=== PATIENT | female | born 1950 | race African-American/Black ===

== ENCOUNTER 2017-08-26 02:53 | Inpatient (IN) | payer MEDICARE ==
[2017-08-26] VITALS (7 sets, daily range): BP systolic 120–166; BP diastolic 56–66
[~2017-08-26] VITALS: Ht 175.3 cm; Wt 93.0 kg
[~2017-08-26 02:53] MED LIST: ALBUTEROL SULF8.5 GM INH; ASPIRIN81 MG NG; BACITRACIN15 GM TOPIC; CIPROFLOXACIN500 M2 ORAL; COZAAR50 MG ORAL; IBUPROFEN600 MG ORAL; KEFLEX500 MG ORAL; METRONIDAZOLE500 MG ORAL; NORCO 5-325 TA1 EAC1 ORAL; NORCO 5-325 TA1 EACH ORAL; PREDNISONE20 MG ORAL
[2017-08-26 03:39] LABS: BASOPHILS % (AUTO) 1.1 % (0.0-2.0); EOSINOPHILS % (AUTO) 2.7 % (0.0-3.0); LYMPHOCYTES % (AUTO) 48.2 % (20.0-45.0); MEAN CORPUSCULAR HEMOGLOBIN 28.7 PG (27.0-31.0); MEAN CORPUSCULAR HGB CONC 32.2 G/DL (32.0-36.0); MEAN CORPUSCULAR VOLUME 89 FL (80-99); MEAN PLATELET VOLUME 10.1 FL (6.5-10.1); MONOCYTES % (AUTO) 5.3 % (1.0-10.0); NEUTROPHILS % (AUTO) 42.7 % (45.0-75.0); PLATELET COUNT 169 K/UL (150-450); RED BLOOD COUNT 4.33 M/UL (4.20-5.40); RED CELL DISTRIBUTION WIDTH 12.1 % (11.6-14.8); WHITE BLOOD COUNT 5.3 K/UL (4.8-10.8)
[2017-08-26] MEDS: Morphine Sulfate 2mg/ml Inj IVP ONE ×2 (03:45→04:38)
[2017-08-26 03:59] LABS: APPEARANCE,URINE CLEAR; KETONES,URINE NEGATIVE (NEGATIVE); LEUKOCYTE ESTERASE ,URINE NEGATIVE (NEGATIVE); NITRITE,URINE NEGATIVE (NEGATIVE); PH,URINE 6 (4.5-8.0); PROTEIN,URINE NEGATIVE (NEGATIVE); UROBILINOGEN,URINE NORMAL MG/DL (0.0-1.0)
[2017-08-26] MEDS ORDERED: DYRENIUM50 MG PO (04:00)
[2017-08-26 04:12] LABS: ALANINE AMINOTRANSFERASE 32 U/L (12-78); ALBUMIN/GLOBULIN RATIO 0.9 (1.0-2.7); ANION GAP 6 mmol/L (5-15); ASPARTATE AMINO TRANSFERASE 17 U/L (15-37); CALCIUM 9.5 MG/DL (8.5-10.1); CARBON DIOXIDE 29 MMOL/L (21-32); CHLORIDE 104 MMOL/L (98-107); CKMB 0.8 NG/ML (0.0-3.6); CREATININE 0.8 MG/DL (0.55-1.30); GLOMERULAR FILTRATION RATE > 60 mL/min (>60); POTASSIUM 3.6 MMOL/L (3.5-5.1); SODIUM 139 MMOL/L (136-145); TOTAL PROTEIN 7.7 G/DL (6.4-8.2)
--- NOTE | 2017-08-26 05:58 | Emergency Room Report ---
History of Present Illness General Chief Complaint: Chest Pain Source: Patient Present Illness HPI 67-year-old female presents ED complaining of chest pain. This chest pain started just prior to arrival. Woke her up. Midsternal, pressure-like, 5/10. Nonradiating. Denies shortness of breath. Denies fevers or chills. Denies cough. Took aspirin prior to arrival. No other aggravating relieving factors. Denies any other associated symptoms Allergies: Coded Allergies: NITROGLYCERIN (Verified Allergy, Mild, 01/07/11) Patient History Past Medical History: asthma Past Surgical History: none Pertinent Family History: none Social History: Denies: smoking, alcohol use, drug use Now: No Immunizations: UTD Reviewed Nursing Documentation: PMH: Agreed, PSxH: Agreed Nursing Documentation-PMH Past Medical History: No History, Except For Hx Cardiac Problems: No Hx Asthma: Yes Hx Cancer: No Hx Gastrointestinal Problems: No Hx Neurological Problems: No Review of Systems All Other Systems: negative except mentioned in HPI Physical Exam Vital Signs Date Time Temp Pulse Resp B/P (MAP) Pulse Ox O2 Delivery O2 Flow Rate FiO2 08/26/17 03:00 97.9 73 15 136/77 98 Room Air Sp02 EP Interpretation: reviewed, normal General Appearance: no apparent distress, alert, GCS 15, non-toxic Head: normocephalic, atraumatic Eyes: bilateral eye normal inspection, bilateral eye PERRL ENT: hearing grossly normal, normal pharynx, no angioedema, normal voice Neck: full range of motion, supple/symm/no masses Respiratory: chest non-tender, lungs clear, normal breath sounds, speaking full sentences Cardiovascular #1: regular rate, rhythm, no edema Cardiovascular #2: 2+ carotid (R), 2+ carotid (L), 2+ radial (R), 2+ radial (L) , 2+ dorsalis pedis (R), 2+ dorsalis pedis (L) Gastrointestinal: normal bowel sounds, non tender, soft, non-distended, no guarding, no rebound Rectal: deferred Genitourinary: normal inspection, no CVA tenderness Musculoskeletal: back normal, gait/station normal, normal range of motion, non- tender Neurologic: alert, oriented x3, responsive, motor strength/tone normal, sensory intact, speech normal Psychiatric: judgement/insight normal, memory normal, mood/affect normal, no suicidal/homicidal ideation Reflexes: 3+ bicep (R), 3+ bicep (L), 3+ tricep (R), 3+ tricep (L), 3+ knee (R) , 3+ knee (L) Skin: normal color, no rash, warm/dry, well hydrated Lymphatic: no adenopathy Medical Decision Making Diagnostic Impression: Primary Impression: Acute coronary syndrome ER Course Hospital Course 67-year-old female presents ED complaining of chest pressure Differential diagnoses include: ID/unstable angina, contusion, muscle strain, PTX, rib fracture Clinical course Patient placed on stretcher. on manager licensing. After initial history and physical I ordered labs, EKG, chest x-ray, morphine labs reviewed- no leukocytosis, hb/hct stable, electrolytes ok, trop negative EKG - NSR, twave inversions in lateral leads, interpreted by me Chest x-ray- cardiomegaly Case discussed with Dr. Crane and he agreed to accept the patient to his service for further care and support I. I feel this is a highly complex case requiring extensive working including EKG/Rhythm strip, Xray/CT/US, Blood/urine lab work, repeat exams while in ED, and administration of strong opiates/narcotics for pain control, admission to hospital or close patient follow up. Diagnosis - ACS admitted to telemetry in serious condition Labs Test 08/26/17 03:19 08/26/17 03:44 White Blood Count 5.3 K/UL (4.8-10.8) Red Blood Count 4.33 M/UL (4.20-5.40) Hemoglobin 12.4 G/DL (12.0-16.0) Hematocrit 38.5 % (37.0-47.0) Mean Corpuscular Volume 89 FL (80-99) Mean Corpuscular Hemoglobin 28.7 PG (27.0-31.0) Mean Corpuscular Hemoglobin Concent 32.2 G/DL (32.0-36.0) Red Cell Distribution Width 12.1 % (11.6-14.8) Platelet Count 169 K/UL (150-450) Mean Platelet Volume 10.1 FL (6.5-10.1) Neutrophils (%) (Auto) 42.7 % (45.0-75.0) Lymphocytes (%) (Auto) 48.2 % (20.0-45.0) Monocytes (%) (Auto) 5.3 % (1.0-10.0) Eosinophils (%) (Auto) 2.7 % (0.0-3.0) Basophils (%) (Auto) 1.1 % (0.0-2.0) Sodium Level 139 MMOL/L (136-145) Potassium Level 3.6 MMOL/L (3.5-5.1) Chloride Level 104 MMOL/L (98-107) Carbon Dioxide Level 29 MMOL/L (21-32) Anion Gap 6 mmol/L (5-15) Blood Urea Nitrogen 25 mg/dL (7-18) Creatinine 0.8 MG/DL (0.55-1.30) Estimat Glomerular Filtration Rate > 60 mL/min (>60) Glucose Level 176 MG/DL (74-106) Calcium Level 9.5 MG/DL (8.5-10.1) Total Bilirubin 0.2 MG/DL (0.2-1.0) Aspartate Amino Transf (AST/SGOT) 17 U/L (15-37) Alanine Aminotransferase (ALT/SGPT) 32 U/L (12-78) Alkaline Phosphatase 42 U/L (46-116) Total Creatine Kinase 110 U/L (26-308) Creatine Kinase MB 0.8 NG/ML (0.0-3.6) Creatine Kinase MB Relative Index 0.7 Troponin I 0.000 ng/mL (0.000-0.056) Pro-B-Type Natriuretic Peptide 109 pg/mL (0-125) Total Protein 7.7 G/DL (6.4-8.2) Albumin 3.6 G/DL (3.4-5.0) Globulin 4.1 g/dL Albumin/Globulin Ratio 0.9 (1.0-2.7) Urine Color Pale yellow Urine Appearance Clear Urine pH 6 (4.5-8.0) Urine Specific [place] 1.010 (1.005-1.035) Urine Protein Negative (NEGATIVE) Urine Glucose (UA) Negative (NEGATIVE) Urine Ketones Negative (NEGATIVE) Urine Occult Blood Negative (NEGATIVE) Urine Nitrite Negative (NEGATIVE) Urine Bilirubin Negative (NEGATIVE) Urine Urobilinogen Normal MG/DL (0.0-1.0) Urine Leukocyte Esterase Negative (NEGATIVE) Urine Opiates Screen Negative (NEGATIVE) Urine Barbiturates Screen Negative (NEGATIVE) Phencyclidine (PCP) Screen Negative (NEGATIVE) Urine Amphetamines Screen Negative (NEGATIVE) Urine Benzodiazepines Screen Negative (NEGATIVE) Urine Cocaine Screen Negative (NEGATIVE) Urine Marijuana (THC) Screen Negative (NEGATIVE) EKG Diagnostic Results Rate: normal Rhythm: NSR ST Segments: other - twave inversions in lateral leads ASA given to the pt in ED: No - took at home Rhythm Strip Diag. Results EP Interpretation: yes Rhythm: NSR, no PVC's, no ectopy Chest X-Ray Diagnostic Results Chest X-Ray Diagnostic Results : Chest X-Ray Ordered: Yes # of Views/Limited/Complete: 1 View Indication: Chest Pain EP Interpretation: Yes Interpretation: no consolidation, no effusion, no pneumothorax, no acute cardiopulmonary disease Impression: No acute disease Electronically Signed by: Electronically signed by Skyler Alvarez MD Last Vital Signs Date Time Temp Pulse Resp B/P (MAP) Pulse Ox O2 Delivery O2 Flow Rate FiO2 08/26/17 04:48 97.9 59 18 142/58 98 Room Air Status: improved Disposition: ADMITTED INPATIENT Condition: Serious Referrals: WILEY CRANE (PCP) SKYLER ALVAREZ M.D. Aug 26, 2017 05:58
[2017-08-26] MEDS ORDERED: Albuterol 90mcg Inhaler 8gm INH PRN (07:45)
[2017-08-26] MEDS ORDERED: Nitroglycerin Subl 0.4mg tab SL PRN (07:45)
[2017-08-26] MEDS: Pantoprazole Inj IVP SCH (09:00)
[2017-08-26] MEDS: Aspirin Baby 81mg ORAL SCH (09:00)
--- NOTE | 2017-08-26 09:58 | Diagnostic Imaging Report ---
Indication: Chest pain Technique: One view of the chest Comparison: 12/08/2015 Findings: The heart is borderline enlarged. Lungs and pleural spaces are clear. There are degenerative changes of the thoracic spine Impression: Borderline cardiomegaly No acute process This agrees with the preliminary interpretation provided by the emergency room physician
[2017-08-26] MEDS: hydroCHLOROthiazide 12.5mg TAB ORAL SCH (11:29)
[2017-08-26] MEDS: Heparin 5000 units/ml inj SUBQ SCH (21:00)
[2017-08-27 00:22] VITALS: BP 129/60
[2017-08-27 04:07] VITALS: BP 134/63
[2017-08-27] MEDS: NovoLOG Insulin Flexpen SUBQ SCH ×2 (06:30→11:30)
[2017-08-27 08:00] VITALS: BP 137/70
[2017-08-27] MEDS: hydroCHLOROthiazide 12.5mg TAB ORAL SCH ×2 (08:13→09:00)
[2017-08-27] MEDS: Pantoprazole Inj IVP SCH ×2 (08:14→09:00)
--- NOTE | 2017-08-27 08:27 | General Progress Note ---
Assessment/Plan Problem List: (1) Acute coronary syndrome ICD Codes: I20.0 - Unstable angina SNOMED: 334813111 Status: stable, progressing Assessment/Plan ppi rx egd dw/ pt poc. Subjective ROS Limited/Unobtainable: No Constitutional: Reports: malaise, weakness HEENT: Reports: no symptoms Cardiovascular: Reports: chest pain Respiratory: Reports: no symptoms Gastrointestinal/Abdominal: Reports: no symptoms Genitourinary: Reports: no symptoms Neurologic/Psychiatric: Reports: no symptoms Endocrine: Reports: no symptoms Hematologic/Lymphatic: Reports: no symptoms Allergies: Coded Allergies: NITROGLYCERIN (Verified Allergy, Mild, 01/07/11) All Systems: reviewed and negative except above Subjective had 1 episode of chest pain last night. troponins negative Objective Last 24 Hour Vital Signs Date Time Temp Pulse Resp B/P (MAP) Pulse Ox O2 Delivery O2 Flow Rate FiO2 08/27/17 04:07 97.9 62 20 134/63 96 Room Air 08/27/17 04:00 72 08/27/17 00:22 97.8 67 20 129/60 97 Room Air 08/27/17 00:00 68 08/26/17 20:10 97.7 64 20 128/66 98 Room Air 08/26/17 20:00 78 08/26/17 16:00 59 08/26/17 15:58 97.9 58 18 120/57 98 Room Air 08/26/17 12:00 61 08/26/17 08:30 97.7 57 16 133/60 100 Room Air Laboratory Tests 08/26/17 12:00: Troponin I 0.000 Height (Feet): 5 Height (Inches): 9.00 Weight (Pounds): 205 General Appearance: WD/WN, alert Neck: supple Cardiovascular: regular rhythm Respiratory/Chest: lungs clear, normal breath sounds Abdomen: normal bowel sounds, non tender, soft Edema: no edema noted Arm (L), no edema noted Arm (R), no edema noted Leg (L), no edema noted Leg (R), no edema noted Pedal (L), no edema noted Pedal (R), no edema noted Generalized PETRA BOOTH Aug 27, 2017 08:27
--- NOTE | 2017-08-27 08:45 | Cardiology Report ---
APPROVED REPORT EKG Measurement Heart [id number] Normal sinus rhythm Minimal voltage criteria for LVH, may be normal variant Nonspecific T wave abnormality Abnormal ECG
[2017-08-27] MEDS: Heparin 5000 units/ml inj SUBQ SCH (09:00)
[2017-08-27] MEDS: Aspirin Baby 81mg ORAL SCH (09:00)
--- NOTE | 2017-08-27 09:31 | Consultation ---
DATE OF CONSULTATION: 08/26/2017 CARDIOLOGY CONSULTATION CONSULTING PHYSICIAN: Eduardo Crane M.D. REQUESTING PHYSICIAN: Michelet Mejia M.D. REASON FOR CONSULTATION: Chest pain. HISTORY OF PRESENT ILLNESS: This is a 67-year-old female with several risk factors for accelerated coronary artery disease. She came to the emergency room complaining of chest pain episodes. There were two episodes of note, firstly two days ago while eating. She was unable to fully digest her meal. It sat as a lump in the center of her chest, although she was not choking. It was stuck. She felt severe chest pain as a result. A friend with her tried to do a mini Heimlich and the apparent food obstruction recovered as did her chest pain. She was well until this evening when she woke up from sleep with similar symptoms. She described it as a heaviness with the food in the middle, likely food stuck in her chest. She denied any associated symptoms. The patient is quite active and has not had any exertional chest pain. She has had a prior myocardial perfusion scan at this facility that was negative and an outpatient exercise echocardiogram at my office that was negative for flow-limiting coronary disease. PAST MEDICAL HISTORY: Asthma, type 2 diabetes mellitus, hypertension, history of cholecystectomy, and choledocholithiasis. ALLERGIES: Nitroglycerin. MEDICATIONS: Prior to admission, reviewed and reconciled. SOCIAL HISTORY: Negative for smoking, alcohol, or substance abuse. REVIEW OF SYSTEMS: No fevers. No chills. No cough. No leg swelling. No vomiting. No history of thyroid disorder. Her diabetes is managed with diet. She has not been on anti-lipid drugs. PHYSICAL EXAMINATION: GENERAL: Moderately obese. No acute distress. VITAL SIGNS: Blood pressure 142/58, pulse 59, respirations 18, and afebrile. HEENT: Conjunctivae are pink. Oropharynx clear. NECK: Supple. LUNGS: Clear. CHEST: Chest wall without tenderness. CARDIAC: Regular rhythm and rate. Normal S1 and S2 with no murmur, rub, or gallop. ABDOMEN: Obese and soft. EXTREMITIES: With no edema. LABORATORY AND DIAGNOSTIC DATA: EKG, sinus rhythm with nonspecific ST changes. Chest x-ray, cardiomegaly with no acute process. Troponin negative x2. Glucose 176. Pro-natriuretic peptide 109. IMPRESSION: 1. Noncardiac chest pain. 2. Possible esophageal spasm. 3. Consideration for hepatobiliary process with 04:01 retained stone. 4. Type 2 diabetes mellitus. 5. Gastroparesis. 6. Hypertension. PLAN: 1. Cardiac monitoring. 2. Abdominal ultrasound. 3. GI consultation for possible diagnostic endoscopy. 4. Empiric proton pump inhibitor therapy at this time. Eduardo Crane M.D. DR: HANNAH JOB#: [id number] CC:
--- NOTE | 2017-08-27 12:26 | Diagnostic Imaging Report ---
Indication: Abdominal pain, abnormal renal function, abnormal liver function tests Technique: Zendejas-scale and duplex images of the upper abdomen were obtained Comparison: 01/08/2011. Reference also made to CT scan dated 12/08/2015 Findings: Gallbladder is surgically absent. Sonographic Peralta's sign is negative. Common bile duct measures 14 mm in diameter. Common duct dilatation also evident previously No intrahepatic biliary ductal dilatation. Liver demonstrates borderline increased echogenicity, indicate hepatocellular disease such as fatty change. Portal vein and hepatic veins are patent. Pancreas is unremarkable. Spleen is unremarkable. Left kidney measures 12 cm in length. Right kidney measures 11.3 cm length. Both kidneys demonstrate normal echogenicity. There is no hydronephrosis. No focal abnormality . Non-aneurysmal abdominal aorta . Impression: Dilated common bile duct, likely related to age and postcholecystectomy state. Similarity to prior exams indicates that this is likely baseline for this patient. Downstream obstruction not completely excludable, however, and correlation with liver function tests is recommended, consideration for MRCP if clinically indicated Borderline increased hepatic echogenicity, if real could indicate basis of fatty change
--- NOTE | 2017-08-27 17:00 | History and Physical Report ---
DATE OF ADMISSION: 08/26/2017 This patient was seen in the emergency room on the day of admission. HISTORY OF PRESENT ILLNESS: The patient is a pleasant 67-year-old female. She has a history of hypertensive heart disease and presented with complaints of two episodes of chest pain. First episode happened actually while the patient was eating and felt like she had food stuck in her throat. It lasted for approximately an hour and resolved. She had a second episode on the night of admission here and presented to the emergency room. On evaluation there, her initial EKG, chest x-ray, and laboratories were unremarkable. She is followed by a nurse anesthesia program director on the outside who has done stress test last year that had been unremarkable according to the patient. PAST MEDICAL HISTORY: As above. PAST SURGICAL HISTORY: None. CURRENT MEDICATIONS: Reconciled and reviewed. ALLERGIES: Include nitroglycerin. SOCIAL HISTORY: There is no known history of tobacco, ethanol, or drugs. FAMILY HISTORY: Noncontributory. REVIEW OF SYSTEMS: GENERAL: No fever or chills. HEENT: No headaches or visual changes. CARDIOPULMONARY: Positive chest pain. No shortness of breath. GASTROINTESTINAL: No nausea or vomiting. GENITOURINARY: No urgency or frequency. MUSCULOSKELETAL: No joint pain or swelling. NEUROLOGIC: No evidence of seizures. PHYSICAL EXAMINATION: VITAL SIGNS: Temperature 98 degrees, blood pressure 128/66, pulse 64, and respirations 20. GENERAL: The patient is well developed, no apparent distress. HEART: Regular rate and rhythm. LUNGS: Clear. ABDOMEN: Soft, nontender, and nondistended. EXTREMITIES: Without clubbing, cyanosis, or edema. LABORATORY AND DIAGNOSTIC DATA: White count was 5, hemoglobin 12. Sodium 139 and potassium 3.6. Troponin was negative x2. UA was clear. Chest x-ray also was clear. ASSESSMENT: This is a pleasant female admitted with complaints of chest pain suspect secondary to either gastritis or gastroesophageal reflux disease, cannot out some type of esophageal stricture. PLAN: Antiplatelet therapy and . Cardiology and GI consultations. Plan of care was discussed with the patient's nurse anesthesia program director and the patient. Michelet Mejia M.D. DR: TERI JOB#: [id number] CC:
--- NOTE | 2017-08-28 02:15 | Progress Note ---
DATE: 08/27/2017 CARDIOLOGY PROGRESS NOTE SUBJECTIVE: The patient has not had any chest pain or shortness of breath. No nausea or vomiting. No difficulty with meals. OBJECTIVE: VITAL SIGNS: Afebrile, blood pressure 128/66, pulse 64, and respirations 20. LUNGS: Clear. CARDIAC: Regular. ABDOMEN: Soft. No focal tenderness, guarding, or rebound. EXTREMITIES: No edema. LABORATORY AND DIAGNOSTIC DATA: Abdominal ultrasound reviewed notable for dilated common bile duct, which may be normal in the setting of prior cholecystectomy and fatty liver. Troponins are negative. IMPRESSION: 1. Noncardiac chest pain, probable upper gastrointestinal related chest discomfort. 2. History of cholecystectomy. 3. Type 2 diabetes mellitus. 4. Obesity. 5. Hypertension. PLAN: 1. Continue anti-platelet therapy. 2. Dietary restrictions. 3. Maintain current antihypertensive drugs. 4. Check lipid panel. 5. We will arrange outpatient endoscopy. 6. No current indication to repeat any further cardiovascular studies. Eduardo Crane M.D. DR: ARABELLA JOB#: [id number] CC:
--- NOTE | 2017-08-29 10:01 | Discharge Summary ---
Discharge Summary Hospital Course Date of Admission Aug 26, 2017 at 04:58 Date of Discharge Aug 27, 2017 at 12:40 Admitting Diagnosis ACUTE CORONARY SYNDROME HPI Leah Burns is a 67 year old female who was admitted on Aug 26, 2017 at 04:58 for Acute Coronary Syndrome Hospital Course [id number] Discharge Discharge Disposition Patient was discharged to home Discharge Diagnoses: Silvia Montelongo NP Aug 29, 2017 10:01
--- NOTE | 2017-08-30 03:15 | Discharge Summary 2 SIG ---
DATE OF ADMISSION: 08/26/2017 DATE OF DISCHARGE: 08/27/2017 RETAIL SEASONAL SPECIALIST: Eduardo Crane M.D. BRIEF HOSPITAL COURSE: The patient is a 67-year-old female with several risk factors for accelerated coronary artery disease, came to emergency room complaining of chest pain. First episode happened while patient was eating and felt like food was stuck in her throat. It lasted for approximately an hour and resolved. She had a second episode on the night of admission. On evaluation at ED, initial troponin was negative. EKG was in normal sinus rhythm with nonspecific ST changes. Chest x-ray showed cardiomegaly with no acute process. She was then admitted for cardiac monitoring. She was given antiplatelet therapy with aspirin and was given proton pump inhibitors and Protonix IV push daily. She underwent abdominal ultrasound that showed dilated common bile duct. Troponins remained negative. She had a prior myocardial perfusion scan that was negative and an outpatient exercise echocardiogram that was likewise negative for flow-limiting coronary disease. There was no current indication to repeat any further cardiovascular studies. Due to rapid improvement and negative workup, the patient was eventually discharged home. FINAL DIAGNOSES: 1. Noncardiac chest pain, probable upper gastrointestinal related chest discomfort. 2. Type 2 diabetes mellitus. 3. Obesity. 4. Hypertension. 5. Prior cholecystectomy. DISPOSITION: The patient was discharged home. DISCHARGE MEDICATIONS: Refer to medication list. FOLLOWUP: Follow up in the primary physician's office in a week. Advised to undergo outpatient endoscopy. Michelet Mejia M.D. I have been assigned to dictate discharge summary on this account and I was not involved in the patient's management. Silvia Montelongo N.P. DR: Melida JOB#: [id number] CC: OBDULIA
== END 2017-08-27 12:40 | disposition home or self-care (01) | DRG 313 ==
LOC: EMR 03:14 → 2E 04:58 → EDBEDREQ 07:36 → 2E 09:59
DX: R07.89 Other chest pain (principal); I11.9 Hypertensive heart disease without heart failure; Z88.8 Allergy status to other drugs, medicaments and biological substances; K92.9 Disease of digestive system, unspecified; E11.9 Type 2 diabetes mellitus without complications; E66.9 Obesity, unspecified; J45.909 Unspecified asthma, uncomplicated
CPT/HCPCS: 36415; 71010; 76700; 80053; 80307; 81003; 82550; 82553; 82962; 83880; 84484; 85025; 93005; 99285; J1815

== ENCOUNTER 2019-10-09 16:03 | Emergency (ER) | payer MEDICARE ==
[~2019-10-09] VITALS: Ht 175.3 cm; Wt 88.5 kg
[~2019-10-09 16:03] MED LIST changes: +DYRENIUM50 MG PO
--- NOTE | 2019-10-09 16:10 | NUR ---
ED Nurse Note: Patient in restroom.
[2019-10-09] MEDS ORDERED: HYDROCHLOROTHIA25 MG ORAL (16:30)
--- NOTE | 2019-10-09 17:31 | Emergency Room Report ---
History of Present Illness General Chief Complaint: Lower Extremity Injury Source: Medical Record (Akash Freed) Present Illness HPI 69-year-old female with history of hypertension currently controlled with hydrochlorothiazide here complaining of pain and swelling of her left big toe x2 days after having a big drawer falling on it. Ecchymosis noted and tender to palpation. Patient has limited range of motion in that area. Denies tingling and numbness, pain radiation. Has not taken medication for pain relief. Denies all other injuries. Also later does report that she got back from [place] 2 weeks ago, had fever and went to the hospital in [facility] and they ran urine and blood cultures and wanted her to repeat those and that states that they were ready when she was about to come back to the [facility]. Patient denies any fever and chills, URI symptoms, abdominal pain, urinary symptoms at this time. I advised patient to follow-up with her primary care physician in this regard. I explained to patient that we will do the urine and blood culture and patient is symptomatic, and has possible signs of sepsis, or infection. Since this has been 3 weeks since onset of her symptoms and she no longer has fever and normal vital signs (Akash Freed) Allergies: Coded Allergies: NITROGLYCERIN (Verified Allergy, Mild, 01/07/11) Patient History Past Medical History: see triage record Past Surgical History: unable to obtain Pertinent Family History: none Now: No Immunizations: UTD Reviewed Nursing Documentation: PMH: Agreed; PSxH: Agreed (Akash Freed) Nursing Documentation-PMH Past Medical History: No History, Except For Hx Cardiac Problems: No Hx Hypertension: No Hx Pacemaker: No Hx Asthma: Yes Hx COPD: No Hx Diabetes: No Hx Cancer: No Hx Gastrointestinal Problems: No Hx Dialysis: No History Of Psychiatric Problem: No Hx Neurological Problems: No Hx Cerebrovascular Accident: No Hx Seizures: No (Akash Freed) Review of Systems All Other Systems: negative except mentioned in HPI (Akash Freed) Physical Exam Vital Signs Date Time Temp Pulse Resp B/P (MAP) Pulse Ox O2 Delivery O2 Flow Rate FiO2 10/09/19 16:22 98.2 80 16 158/89 (112) 99 Room Air Sp02 EP Interpretation: reviewed, normal General Appearance: no apparent distress, alert, GCS 15, non-toxic Head: normocephalic, atraumatic Eyes: bilateral eye normal inspection, bilateral eye PERRL ENT: hearing grossly normal, normal pharynx, no angioedema, normal voice Neck: full range of motion, supple/symm/no masses Respiratory: chest non-tender, lungs clear, normal breath sounds, no rhonchi, no wheezing, speaking full sentences Cardiovascular #1: regular rate, rhythm, no edema, no murmur, normal capillary refill Cardiovascular #2: 2+ dorsalis pedis (R), 2+ dorsalis pedis (L) Gastrointestinal: normal bowel sounds, non tender, soft, non-distended, no guarding, no rebound Genitourinary: no CVA tenderness Musculoskeletal: back normal, no calf tenderness, pelvis stable, tender - left big toe, swelling - left big toe Neurologic: alert, motor strength/tone normal, oriented x3, sensory intact, responsive, speech normal Psychiatric: judgement/insight normal, memory normal, mood/affect normal, no suicidal/homicidal ideation Skin: other - eccymosis left big toe Lymphatic: no adenopathy (Akash Freed) Procedures Splinting Splinting : Consent: Verbal Location: left toe Pre-Made Type: patti tape Pre-Proc Neuro Vasc Exam: normal Post-Proc Neuro Vasc Exam: normal Patient Tolerated: Well Complications: None Progress post op shoe given (Akash Freed) Medical Decision Making PA Attestation All diagnoses and treatment plans were reviewed and discussed with my supervising physician Dr. Low (Akash Freed) Diagnostic Impression: Primary Impression: Toe fracture, left ER Course 69-year-old female with history of hypertension currently controlled with hydrochlorothiazide here complaining of pain and swelling of her left big toe x2 days after having a big drawer falling on it. Ecchymosis noted and tender to palpation. Patient has limited range of motion in that area. Denies tingling and numbness, pain radiation. Has not taken medication for pain relief. Denies all other injuries. Also later does report that she got back from [place] 2 weeks ago, had fever and went to the hospital in [place] and they ran urine and blood cultures and wanted her to repeat those and that states that they were ready when she was about to come [place] the states. Patient denies any fever and chills, URI symptoms, abdominal pain, urinary symptoms at this time. I advised patient to follow-up with her primary care physician in this regard. I explained to patient that we will do the urine and blood culture and patient is symptomatic, and has possible signs of sepsis, or infection. Since this has been 3 weeks since onset of her symptoms and she no longer has fever and normal vital signs Ddx considered but are not limited to: foot fracture, foot sprain, foot contusion, foot strain, left toe fracture, left toe sprain, left toe contusion Vital signs: are WNL, pt. is afebrile H&PE are most consistent with: Left toe fracture ORDERS: foot Xray, ibuprofen, Tylenol ED INTERVENTIONS: Patti tape, postoperative shoe DISCHARGE: At this time pt. is stable for d/c to home. Will provide printed patient care instructions, and any necessary prescriptions. Care plan and follow up instructions have been discussed with the patient prior to discharge. Patient to follow-up with her primary care provider for referral to insurance marketing specialist, if worsening symptoms return to the emergency room. (Akash Freed) Other X-Ray Diagnostic Results Other X-Ray Diagnostic Results : X-Ray ordered: foot xray # of Views/Limited Vs Complete: 3 View Indication: Pain EP Interpretation: Yes PA Xray: Interpretation reviewed, by supervising MD, and agrees with findings. Interpretation: no dislocation, other - fx left big toe Impression: Other - fx left big toe Electronically Signed by: Akash Lucio PA-C (Akash Freed) Other X-Ray Diagnostic Results : Electronically Signed by: Alexis Walker documentation of Xray reviewed by me and is accurate, Eduardo Low MD (Eduardo Low MD) Last Vital Signs Date Time Temp Pulse Resp B/P (MAP) Pulse Ox O2 Delivery O2 Flow Rate FiO2 10/09/19 16:22 98.2 80 16 158/89 (112) 99 Room Air (Akash Freed) Disposition: HOME, SELF-CARE Condition: Stable Scripts Ibuprofen (Ibu) 800 Mg Tablet 800 MG PO TID, #30 TAB Prov: Akash Freed 10/09/19 Acetaminophen* (ACETAMINOPHEN 325MG TABLET*) 325 Mg Tablet 650 MG ORAL Q6H PRN for For Pain, #30 TAB Prov: Akash Freed 10/09/19 Referrals: Eduardo Crane MD (PCP) Patient Instructions: Toe Fracture, [id number] Additional Instructions: See your primary doctor for referral to insurance marketing specialist, take medication as directed, keep your leg elevated, if worsening symptoms return to the emergency room Akash Freed Oct 09, 2019 17:31 Eduardo Low MD Oct 10, 2019 06:27
[2019-10-09] MEDS ORDERED: IBU800 MG PO (17:32)
[2019-10-09] MEDS ORDERED: ACETAMINOPHEN325 M1 ORAL (17:32)
--- NOTE | 2019-10-09 17:35 | Diagnostic Imaging Report ---
Indication: Trauma, pain Technique: 3 views left foot Comparison: none Findings: There is a transverse fracture of the first distal phalanx, also with a vertically oriented component. This is nondisplaced. No other acute fractures. No dislocations. The joint spaces are preserved. There is hallux valgus bunion formation, with lateral subluxation of the first metatarsal phalangeal joint. Impression: Positive for first distal phalangeal fracture
[2019-10-09 17:40] VITALS: BP 146/88
== END 2019-10-09 17:40 | disposition home or self-care (01) ==
LOC: EMR 16:57
DX: S92.402A Displaced unspecified fracture of left great toe, initial encounter for closed fracture (principal); W22.8XXA Striking against or struck by other objects, initial encounter; Y93.9 Activity, unspecified; Y92.9 Unspecified place or not applicable; J45.909 Unspecified asthma, uncomplicated; Z88.8 Allergy status to other drugs, medicaments and biological substances
CPT/HCPCS: 29515; 99283

== ENCOUNTER → 2019-11-17 | Outpatient (CLI) | payer MEDICARE ==
[~2019-11-17] MED LIST changes: +ACETAMINOPHEN325 M1 ORAL; +HYDROCHLOROTHIA25 MG ORAL; +IBU800 MG PO
[2019-11-17 11:48] LABS: APPEARANCE,URINE CLEAR; BILIRUBIN, URINE NEGATIVE (NEGATIVE); COLOR,URINE PALE YELLOW; GLUCOSE, URINE (UA) NEGATIVE (NEGATIVE); KETONES,URINE NEGATIVE (NEGATIVE); LEUKOCYTE ESTERASE ,URINE NEGATIVE (NEGATIVE); NITRITE,URINE NEGATIVE (NEGATIVE); PH,URINE 6 (4.5-8.0); PROTEIN,URINE NEGATIVE (NEGATIVE); UROBILINOGEN,URINE NORMAL MG/DL (0.0-1.0)
[2019-11-17 11:56] LABS: BASOPHILS % (AUTO) 1.2 % (0.0-2.0); EOSINOPHILS % (AUTO) 2.5 % (0.0-3.0); HEMOGLOBIN 12.3 G/DL (12.0-16.0); LYMPHOCYTES % (AUTO) 48.3 % (20.0-45.0); MEAN CORPUSCULAR VOLUME 86 FL (80-99); PLATELET COUNT 164 K/UL (150-450); RED BLOOD COUNT 4.28 M/UL (4.20-5.40); RED CELL DISTRIBUTION WIDTH 11.8 % (11.6-14.8); WHITE BLOOD COUNT 4.1 K/UL (4.8-10.8)
[2019-11-17 12:18] LABS: ALANINE AMINOTRANSFERASE 26 U/L (12-78); ALBUMIN 3.8 G/DL (3.4-5.0); ALBUMIN/GLOBULIN RATIO 0.9 (1.0-2.7); ALKALINE PHOSPHATASE 44 U/L (46-116); ANION GAP 6 mmol/L (5-15); ASPARTATE AMINO TRANSFERASE 15 U/L (15-37); BILIRUBIN,TOTAL 0.4 MG/DL (0.2-1.0); BLOOD UREA NITROGEN 20 mg/dL (7-18); CALCIUM 9.3 MG/DL (8.5-10.1); CARBON DIOXIDE 33 MMOL/L (21-32); CHLORIDE 104 MMOL/L (98-107); CHOLESTEROL 179 MG/DL (< 200); CREATININE 0.8 MG/DL (0.55-1.30); HDL CHOLESTEROL 72 MG/DL (40-60); POTASSIUM 3.8 MMOL/L (3.5-5.1); SODIUM 143 MMOL/L (136-145); TRIGLYCERIDES 67 MG/DL (30-150)
== END | disposition home or self-care (01) ==
LOC: LAB 11:11
DX: E11.65 Type 2 diabetes mellitus with hyperglycemia (principal); I11.9 Hypertensive heart disease without heart failure
CPT/HCPCS: 36415; 80053; 80061; 81001; 83036; 84443; 85025

== ENCOUNTER 2020-01-21 11:55 | Inpatient (IN) | payer MEDICARE, OTHER ==
[~2020-01-21] VITALS: Ht 175.3 cm; Wt 90.3 kg
[2020-01-21 12:00] VITALS: BP 138/67
[2020-01-21] MEDS ORDERED: Omnipaque-300 100ml vial INJ PRN (12:15)
[2020-01-21] MEDS ORDERED: Morphine Sulfate 4mg/ml Inj (IV USE ONLY) IVP ONE (12:15)
--- NOTE | 2020-01-21 12:20 | Emergency Room Report ---
History of Present Illness General Chief Complaint: Abdominal Pain Source: Patient Present Illness HPI 69-year-old female presents with periumbilical pain that started at 8 AM no aggravating relieving factors severity is moderate, constant she describes the pain as someone tugging on her bellybutton no fevers no chills no nausea no vomiting no chest pain or shortness of breath no diarrhea no blood in the stool patient presents for evaluation COVID-19 risk:Contact w/high r: No COVID-19 risk:Travel to affect: No Has patient experienced charles: No Allergies: Coded Allergies: NITROGLYCERIN (Verified Allergy, Mild, 01/07/11) Patient History Past Medical History: see triage record Now: No : 3 Para: 3 Reviewed Nursing Documentation: PMH: Agreed; PSxH: Agreed Nursing Documentation-PMH Past Medical History: No History, Except For Hx Cardiac Problems: No Hx Hypertension: No Hx Pacemaker: No Hx Asthma: Yes Hx COPD: No Hx Diabetes: No Hx Cancer: No Hx Gastrointestinal Problems: No Hx Dialysis: No Hx Neurological Problems: No Hx Cerebrovascular Accident: No Hx Seizures: No Review of Systems All Other Systems: negative except mentioned in HPI Physical Exam Vital Signs Date Time Temp Pulse Resp B/P (MAP) Pulse Ox O2 Delivery O2 Flow Rate FiO2 01/21/20 11:59 97.7 71 19 138/67 (90) 98 Room Air Sp02 EP Interpretation: reviewed, normal General Appearance: well appearing, no apparent distress, alert Head: normocephalic, atraumatic Eyes: bilateral eye PERRL, bilateral eye EOMI ENT: uvula midline, moist mucus membranes Neck: supple, thyroid normal, supple/symm/no masses Respiratory: lungs clear, no respiratory distress, no retraction, no accessory muscle use Cardiovascular #1: normal peripheral pulses, regular rate, rhythm, no edema, no gallop, no murmur Gastrointestinal: soft, no guarding, no rebound, tenderness - Mild generalized tenderness Musculoskeletal: normal inspection Neurologic: alert, oriented x3 Psychiatric: mood/affect normal Skin: no rash, warm/dry Medical Decision Making Diagnostic Impression: Primary Impression: SBO (small bowel obstruction) ER Course Patient with abdominal pain differential diagnosis includes diverticulitis, appendicitis, SBO Amena consulted for SBO Patient will be admitted to [facility] Dr. Ching consulted for treatment of SBO Laboratory Tests Test 01/21/20 12:20 White Blood Count 4.6 K/UL (4.8-10.8) L Red Blood Count 4.67 M/UL (4.20-5.40) Hemoglobin 13.1 G/DL (12.0-16.0) Hematocrit 40.4 % (37.0-47.0) Mean Corpuscular Volume 86 FL (80-99) Mean Corpuscular Hemoglobin 27.9 PG (27.0-31.0) Mean Corpuscular Hemoglobin Concent 32.3 G/DL (32.0-36.0) Red Cell Distribution Width 13.0 % (11.6-14.8) Platelet Count 191 K/UL (150-450) Mean Platelet Volume 10.9 FL (6.5-10.1) H Neutrophils (%) (Auto) 54.7 % (45.0-75.0) Lymphocytes (%) (Auto) 38.8 % (20.0-45.0) Monocytes (%) (Auto) 3.2 % (1.0-10.0) Eosinophils (%) (Auto) 2.1 % (0.0-3.0) Basophils (%) (Auto) 1.3 % (0.0-2.0) Prothrombin Time 10.0 SEC (9.30-11.50) Prothrombin Time INR 0.9 (0.9-1.1) Activated Partial Thromboplast Time 27 SEC (23-33) Urine Color Pale yellow Urine Appearance Clear Urine pH 7 (4.5-8.0) Urine Specific [place] 1.010 (1.005-1.035) Urine Protein Negative (NEGATIVE) Urine Glucose (UA) Negative (NEGATIVE) Urine Ketones Negative (NEGATIVE) Urine Blood Negative (NEGATIVE) Urine Nitrite Negative (NEGATIVE) Urine Bilirubin Negative (NEGATIVE) Urine Urobilinogen Normal MG/DL (0.0-1.0) Urine Leukocyte Esterase Negative (NEGATIVE) Sodium Level 138 MMOL/L (136-145) Potassium Level 3.7 MMOL/L (3.5-5.1) Chloride Level 99 MMOL/L (98-107) Carbon Dioxide Level 29 MMOL/L (21-32) Anion Gap 10 mmol/L (5-15) Blood Urea Nitrogen 18 mg/dL (7-18) Creatinine 0.8 MG/DL (0.55-1.30) Estimated Glomerular Filtration Rate > 60 mL/min (>60) Glucose Level 158 MG/DL (74-106) H Calcium Level 10.9 MG/DL (8.5-10.1) H Total Bilirubin 0.3 MG/DL (0.2-1.0) Aspartate Amino Transferase (AST) 14 U/L (15-37) L Alanine Aminotransferase (ALT) 36 U/L (12-78) Alkaline Phosphatase 57 U/L (46-116) Troponin I 0.000 ng/mL (0.000-0.056) Total Protein 8.8 G/DL (6.4-8.2) H Albumin 4.3 G/DL (3.4-5.0) Globulin 4.5 g/dL Albumin/Globulin Ratio 1.0 (1.0-2.7) Lipase 157 U/L (73-393) EKG Diagnostic Results EKG Time: 12:37 EP Interpretation: NSR, rate 66, QTc 410, no acute ST elevations, normal axis Rhythm Strip Diag. Results Rhythm Strip Time: 13:20 EP Interpretation: yes Rate: 68 Rhythm: NSR, no PVC's, no ectopy Chest X-Ray Diagnostic Results Chest X-Ray Diagnostic Results : Chest X-Ray Ordered: Yes # of Views/Limited/Complete: 1 View Indication: Other - Abdominal pain EP Interpretation: Yes Interpretation: no consolidation, no effusion, no pneumothorax, no acute cardiopulmonary disease Impression: No acute disease Electronically Signed by: Rolando Burns MD CT/MRI/US Diagnostic Results CT/MRI/US Diagnostic Results : Impression Procedure: CT Abdomen Pelvis w/Contrast INDICATION: Abdominal pain TECHNIQUE: Continuous helical transaxial imaging of the abdomen and pelvis was obtained from the lung bases to the pubic symphysis during intravenous contrast administration. Coronal 2-D reformats were also obtained. Study obtained in a Siemens sensation [address] Automatic Exposure Control was utilized. Total Dose length Product (DLP): 609.[address] Dose Index Volume (CTDIvol): 11.7 mGy COMPARISON: 12/08/2015 FINDINGS: Lungs: There is minimal posterior basal atelectasis at the lung bases. The heart is slightly prominent in size.. Liver: Unremarkable Gallbladder/biliary system: Gallbladder is absent. There is no biliary ductal dilatation appreciated.. Spleen: Unremarkable Pancreas: Unremarkable Kidneys/Bladder: Small nonobstructive stones are demonstrated in the upper pole the left kidney. There is no hydronephrosis. Urinary bladder is unremarkable.. Adrenal glands: Unremarkable Aorta/IVC: Mild calcification of aorta demonstrated. Bowel: There are multiple distended loops of small bowel mostly fluid-filled within the proximal small bowel. There is a transition to normal caliber relatively nondistended small bowel. This occurs in about the mid jejunum level. The transition may be in the right lower quadrant. There is no pneumatosis. The degree of small bowel dilatation is mild but suggest small bowel obstruction. There is no free air. There is no evidence of abscess. Moderate diverticulosis of the colon that noted especially in the sigmoid region. Peritoneum: There is no free fluid. Bones: There is narrowing of intervertebral discs and accompanying endplate osteophyte formation. Hypertrophied facet joints also demonstrated. IMPRESSION: Suspicion of small bowel obstruction occurring in the mid jejunum. Transition may be in the right lower quadrant. No evidence of pneumoperitoneum. Diverticulosis of the sigmoid colon. Status post cholecystectomy Arterial vascular disease Nonobstructive stones in the upper pole left kidney. Minimal posterior basal atelectasis Last Vital Signs Date Time Temp Pulse Resp B/P (MAP) Pulse Ox O2 Delivery O2 Flow Rate FiO2 01/21/20 11:59 97.7 71 19 138/67 (90) 98 Room Air Disposition: ADMITTED INPATIENT Condition: Stable Rolando Burns MD Jan 21, 2020 12:20
[2020-01-21 12:52] LABS: APPEARANCE,URINE CLEAR; BASOPHILS % (AUTO) 1.3 % (0.0-2.0); BILIRUBIN, URINE NEGATIVE (NEGATIVE); COLOR,URINE PALE YELLOW; EOSINOPHILS % (AUTO) 2.1 % (0.0-3.0); GLUCOSE, URINE (UA) NEGATIVE (NEGATIVE); HEMATOCRIT 40.4 % (37.0-47.0); HEMOGLOBIN 13.1 G/DL (12.0-16.0); KETONES,URINE NEGATIVE (NEGATIVE); LEUKOCYTE ESTERASE ,URINE NEGATIVE (NEGATIVE); LYMPHOCYTES % (AUTO) 38.8 % (20.0-45.0); MEAN CORPUSCULAR VOLUME 86 FL (80-99); MONOCYTES % (AUTO) 3.2 % (1.0-10.0); NEUTROPHILS % (AUTO) 54.7 % (45.0-75.0); NITRITE,URINE NEGATIVE (NEGATIVE); PH,URINE 7 (4.5-8.0); PLATELET COUNT 191 K/UL (150-450); PROTEIN,URINE NEGATIVE (NEGATIVE); RED BLOOD COUNT 4.67 M/UL (4.20-5.40); UROBILINOGEN,URINE NORMAL MG/DL (0.0-1.0); WHITE BLOOD COUNT 4.6 K/UL (4.8-10.8)
[2020-01-21 13:05] LABS: ANION GAP 10 mmol/L (5-15); BLOOD UREA NITROGEN 18 mg/dL (7-18); CALCIUM 10.9 MG/DL (8.5-10.1); CARBON DIOXIDE 29 MMOL/L (21-32); CHLORIDE 99 MMOL/L (98-107); CREATININE 0.8 MG/DL (0.55-1.30); POTASSIUM 3.7 MMOL/L (3.5-5.1); SODIUM 138 MMOL/L (136-145)
[2020-01-21 13:07] LABS: INR 0.9 (0.9-1.1)
[2020-01-21 13:09] LABS: ALANINE AMINOTRANSFERASE 36 U/L (12-78); ALBUMIN 4.3 G/DL (3.4-5.0); ALKALINE PHOSPHATASE 57 U/L (46-116); ASPARTATE AMINO TRANSFERASE 14 U/L (15-37); BILIRUBIN,TOTAL 0.3 MG/DL (0.2-1.0)
--- NOTE | 2020-01-21 13:29 | Diagnostic Imaging Report ---
Indication: Cough Comparison: 08/26/2017 A single view chest radiograph was obtained. Findings: No definite infiltrate or pulmonary vascular congestion identified. The heart is enlarged. The aorta is mildly enlarged consistent with atherosclerotic vascular disease. The bones are osteopenic. There are thoracic vertebral enthesophytes at multiple levels. Impression: No acute disease
--- NOTE | 2020-01-21 14:19 | Diagnostic Imaging Report ---
INDICATION: Abdominal pain TECHNIQUE: Continuous helical transaxial imaging of the abdomen and pelvis was obtained from the lung bases to the pubic symphysis during intravenous contrast administration. Coronal 2-D reformats were also obtained. Study obtained in a Siemens sensation [address] Automatic Exposure Control was utilized. Total Dose length Product (DLP): 609.[address] Dose Index Volume (CTDIvol): 11.7 mGy COMPARISON: 12/08/2015 FINDINGS: Lungs: There is minimal posterior basal atelectasis at the lung bases. The heart is slightly prominent in size.. Liver: Unremarkable Gallbladder/biliary system: Gallbladder is absent. There is no biliary ductal dilatation appreciated.. Spleen: Unremarkable Pancreas: Unremarkable Kidneys/Bladder: Small nonobstructive stones are demonstrated in the upper pole the left kidney. There is no hydronephrosis. Urinary bladder is unremarkable.. Adrenal glands: Unremarkable Aorta/IVC: Mild calcification of aorta demonstrated. Bowel: There are multiple distended loops of small bowel mostly fluid-filled within the proximal small bowel. There is a transition to normal caliber relatively nondistended small bowel. This occurs in about the mid jejunum level. The transition may be in the right lower quadrant. There is no pneumatosis. The degree of small bowel dilatation is mild but suggest small bowel obstruction. There is no free air. There is no evidence of abscess. Moderate diverticulosis of the colon that noted especially in the sigmoid region. Peritoneum: There is no free fluid. Bones: There is narrowing of intervertebral discs and accompanying endplate osteophyte formation. Hypertrophied facet joints also demonstrated. IMPRESSION: Suspicion of small bowel obstruction occurring in the mid jejunum. Transition may be in the right lower quadrant. No evidence of pneumoperitoneum. Diverticulosis of the sigmoid colon. Status post cholecystectomy Arterial vascular disease Nonobstructive stones in the upper pole left kidney. Minimal posterior basal atelectasis The CT scanner at [facility] is accredited by the [employer] and the scans are performed using dose optimization techniques as appropriate to a performed exam including Automatic Exposure control.
[2020-01-21 15:00] VITALS: BP 131/76
[2020-01-21] MEDS ORDERED: Midazolam 2mg/2ml Inj ONE (15:22)
[2020-01-21] MEDS ORDERED: Midazolam 2mg/2ml Inj IVP ONE (15:30)
[2020-01-21] MEDS ORDERED: Miralax 17gm pkt ORAL PRN (17:15)
[2020-01-21] MEDS ORDERED: DiphenhydrAMINE 25mg Tab ORAL PRN (17:15)
[2020-01-21] MEDS ORDERED: Metoclopramide 10mg/2ml Inj IVP PRN (17:15)
--- NOTE | 2020-01-21 18:05 | Diagnostic Imaging Report ---
Indication: Status post nasogastric tube placement Technique: Supine view of the abdomen Comparison: Box Spinner image from abdominal CT of 3 hours earlier Findings: There placement of a nasogastric tube, tip of which projects at the level of the gastric fundus body junction. Mildly prominent left mid abdominal small bowel loops are noted. Contrast is seen within the bilateral renal collecting systems and bladder. There are cholecystectomy clips. Impression: Satisfactory nasogastric intubation
--- NOTE | 2020-01-21 18:15 | Consultation ---
DATE OF CONSULTATION: 01/21/2020 CONSULTING PHYSICIAN: Maite Ching M.D. REFERRING PHYSICIAN: Tree Pablo M.D. REASON FOR CONSULTATION: Abdominal pain. HISTORY OF PRESENT ILLNESS: This is a 69-year-old female, who presented to emergency room for abdominal pain since this morning. She stated the pain is located at the periumbilical area and apparently is crampy in nature. She denied any nausea or vomiting. She had 2 bowel movements today. One of them was before and the other one after the onset of the pain. She denies fever, cough, dysuria, or frequency. She denied any previous history of similar episodes. PAST MEDICAL HISTORY: She claims to be allergic to nitroglycerin. She denies cardiac and renal diseases. She claims that she has a history of asthma, borderline diabetes, and borderline hypertension. PAST SURGICAL HISTORY: Include open cholecystectomy and a hysterectomy. MEDICATIONS: Please see the medicine reconciliation form. SOCIAL HISTORY: The patient is a 69-year-old female. Denies smoking or drinking. REVIEW OF SYSTEMS: Noncontributory. PHYSICAL EXAMINATION: GENERAL: The patient appeared to be a well-developed, well-nourished, 69-year-old female, in no acute distress. HEENT: Head is normocephalic and atraumatic. Eyes, pupils are equal, round, and reactive to light. Mouth is clear. NECK: There is no palpable thyromegaly or adenopathy. CHEST: Clear to auscultation and percussion. HEART: There is no gallop or murmur. S1 and S2 are within normal limits. ABDOMEN: Mildly obese, but soft. Not tender. She has a scar of the midline incision above the umbilicus. She has a scar of the transverse suprapubic incision. There is no palpable organomegaly and bowel sounds are hypoactive. GENITAL: Deferred. EXTREMITIES: Within normal limits. LABORATORY AND DIAGNOSTIC DATA: CBC is normal. Chemistry has shown a slight elevation of glucose. CAT scan of the abdomen has been interpreted by radiologist as possible small bowel obstruction, but in reviewing the CAT scan, there is mild dilatation of the proximal small bowel but the distal small bowels are normal in caliber and there is gas and stool in the large bowel. ASSESSMENT: Abdominal pain, rule out partial obstruction. RECOMMENDATION: At this time, the patient requires to be NPO, on IV fluids. I took the liberty of ordering a Gastrografin small bowel followthrough. The patient can benefit from a GI consultation too. Maite Ching M.D. DR: PIEDAD JOB#: [id number] CC:
[2020-01-21] MEDS: D5 1/2NS 1,000 ML IV SCH (18:38)
[2020-01-21 20:00] VITALS: BP 127/72
[2020-01-21] MEDS: Heparin 5000 units/ml inj SUBQ SCH (20:57)
[2020-01-21 23:22] VITALS: BP 148/65
[2020-01-22 04:00] VITALS: BP 136/74
[2020-01-22] MEDS: D5 1/2NS 1,000 ML IV SCH (06:10)
[2020-01-22 06:33] LABS: BASOPHILS % (AUTO) 0.6 % (0.0-2.0); EOSINOPHILS % (AUTO) 2.7 % (0.0-3.0); HEMATOCRIT 36.2 % (37.0-47.0); HEMOGLOBIN 11.9 G/DL (12.0-16.0); LYMPHOCYTES % (AUTO) 41.6 % (20.0-45.0); MEAN CORPUSCULAR VOLUME 86 FL (80-99); MONOCYTES % (AUTO) 5.2 % (1.0-10.0); NEUTROPHILS % (AUTO) 49.9 % (45.0-75.0); PLATELET COUNT 164 K/UL (150-450); RED BLOOD COUNT 4.22 M/UL (4.20-5.40); RED CELL DISTRIBUTION WIDTH 12.1 % (11.6-14.8); WHITE BLOOD COUNT 4.4 K/UL (4.8-10.8)
[2020-01-22 07:02] LABS: ALANINE AMINOTRANSFERASE 26 U/L (12-78); ALBUMIN 3.4 G/DL (3.4-5.0); ALBUMIN/GLOBULIN RATIO 0.9 (1.0-2.7); ALKALINE PHOSPHATASE 43 U/L (46-116); AMYLASE 53 U/L (25-115); ANION GAP 8 mmol/L (5-15); ASPARTATE AMINO TRANSFERASE 15 U/L (15-37); BILIRUBIN,TOTAL 0.4 MG/DL (0.2-1.0); BLOOD UREA NITROGEN 14 mg/dL (7-18); CALCIUM 9.6 MG/DL (8.5-10.1); CARBON DIOXIDE 33 MMOL/L (21-32); CHLORIDE 104 MMOL/L (98-107); CREATININE 0.7 MG/DL (0.55-1.30); SODIUM 144 MMOL/L (136-145)
[2020-01-22 08:00] VITALS: BP 155/71
[2020-01-22] MEDS: Heparin 5000 units/ml inj SUBQ SCH (09:00)
[2020-01-22] MEDS ORDERED: Pantoprazole Inj IV SCH (09:00)
--- NOTE | 2020-01-22 11:21 | Diagnostic Imaging Report ---
Indication: Abdominal pain Technique: Zendejas-scale and duplex images of the upper abdomen were obtained Comparison: 08/27/2017 Findings: Gallbladder is surgically absent. Common bile duct measures 3 mm in diameter. No intrahepatic biliary ductal dilatation. Liver demonstrates diffusely increased echogenicity, consistent with diffuse hepatocellular disease, most likely fatty change. Portal vein and hepatic veins are patent. Pancreas is incompletely visualized due to overlying bowel gas, visualized portions are unremarkable. Spleen is unremarkable. Left kidney measures 10.9 cm in length. Right kidney measures 9.7 cm length. Both kidneys demonstrate normal echogenicity. There is no hydronephrosis. The left kidney demonstrates a 1.1 cm upper pole calculus. Abdominal aorta is partially obscured by bowel gas, visualized portions are non-aneurysmal . Impression: Nonobstructive left upper pole intrarenal calculus No acute abnormality Status post cholecystectomy. Negative for dilated bile ducts Note inability to visualize portions of the abdominal aorta and pancreas
[2020-01-22 12:00] VITALS: BP 151/90
--- NOTE | 2020-01-22 13:42 | Consultation ---
History of Present Illness General Chief Complaint: Abdominal Pain Present Illness HPI 69-year-old female, Jehova witness, HTN, Asthma, presented to ER with periumbilical pain for then whole day. no fevers no chills no nausea no vomiting, no blood in the stool. Initial evaluation showed that the pt might have SBO. Surgical consult was called and she is admitted for further management. Allergies: Coded Allergies: NITROGLYCERIN (Verified Allergy, Mild, 01/07/11) Medication History Discontinued Medications Acetaminophen* (Acetaminophen 325MG Tablet*), 650 MG ORAL Q6H PRN for For Pain Discontinued Reason: Pt stopped taking med Hydrochlorothiazide* (Hydrochlorothiazide*), 25 MG ORAL DAILY, (Reported) Discontinued Reason: Pt stopped taking med Ibuprofen (Ibu), 800 MG PO TID Discontinued Reason: Pt stopped taking med Patient History Healthcare decision maker Resuscitation status Full Code Advanced Directive on File No Past Medical/Surgical History Past Medical/Surgical History: (1) History of asthma (2) History of hypertension (3) Patient is Shinto (4) Asthma exacerbation Review of Systems All Other Systems: negative except mentioned in HPI Physical Exam General Appearance: WD/WN, no apparent distress Lines, tubes and drains: peripheral HEENT: normocephalic, atraumatic Neck: non-tender, normal alignment Respiratory/Chest: chest wall non-tender, lungs clear Breasts: no masses Cardiovascular/Chest: normal peripheral pulses, normal rate Abdomen: normal bowel sounds, non tender Genitourinary/Rectal: normal genital exam Extremities: normal range of motion Skin Exam: normal pigmentation Neurologic: multimedia editor II-XII grossly normal Last 24 Hour Vital Signs Date Time Temp Pulse Resp B/P (MAP) Pulse Ox O2 Delivery O2 Flow Rate FiO2 01/22/20 12:00 98.0 76 22 151/90 (110) 96 01/22/20 09:00 Room Air 01/22/20 08:00 98.7 70 22 155/71 (99) 96 01/22/20 04:00 98.5 69 17 136/74 (94) 98 01/21/20 23:22 98.3 64 17 148/65 (92) 97 01/21/20 21:00 Room Air 01/21/20 20:00 98.8 74 18 127/72 (90) 96 3/19/20 17:47 Room Air 01/21/20 17:00 97.9 74 19 136/79 98 Room Air 01/21/20 15:00 98.0 69 19 131/76 98 Room Air Intake and Output 01/21/20 01/22/20 19:00 07:00 Intake Total 0 ml 900 ml Output Total 300 ml 400 ml Balance -300 ml 500 ml Intake Oral 0 ml IV Total 900 ml Output Gastric Drainage Total 400 ml Other 300 ml # Voids 3 Laboratory Tests Test 01/22/20 05:20 White Blood Count 4.4 K/UL (4.8-10.8) L Red Blood Count 4.22 M/UL (4.20-5.40) Hemoglobin 11.9 G/DL (12.0-16.0) L Hematocrit 36.2 % (37.0-47.0) L Mean Corpuscular Volume 86 FL (80-99) Mean Corpuscular Hemoglobin 28.2 PG (27.0-31.0) Mean Corpuscular Hemoglobin Concent 32.9 G/DL (32.0-36.0) Red Cell Distribution Width 12.1 % (11.6-14.8) Platelet Count 164 K/UL (150-450) Mean Platelet Volume 10.0 FL (6.5-10.1) Neutrophils (%) (Auto) 49.9 % (45.0-75.0) Lymphocytes (%) (Auto) 41.6 % (20.0-45.0) Monocytes (%) (Auto) 5.2 % (1.0-10.0) Eosinophils (%) (Auto) 2.7 % (0.0-3.0) Basophils (%) (Auto) 0.6 % (0.0-2.0) Activated Partial Thromboplast Time 27 SEC (23-33) Sodium Level 144 MMOL/L (136-145) Potassium Level 4.0 MMOL/L (3.5-5.1) Chloride Level 104 MMOL/L (98-107) Carbon Dioxide Level 33 MMOL/L (21-32) H Anion Gap 8 mmol/L (5-15) Blood Urea Nitrogen 14 mg/dL (7-18) Creatinine 0.7 MG/DL (0.55-1.30) Estimat Glomerular Filtration Rate > 60 mL/min (>60) Glucose Level 161 MG/DL (74-106) H Calcium Level 9.6 MG/DL (8.5-10.1) Total Bilirubin 0.4 MG/DL (0.2-1.0) Aspartate Amino Transf (AST/SGOT) 15 U/L (15-37) Alanine Aminotransferase (ALT/SGPT) 26 U/L (12-78) Alkaline Phosphatase 43 U/L (46-116) L Total Protein 7.3 G/DL (6.4-8.2) Albumin 3.4 G/DL (3.4-5.0) Globulin 3.9 g/dL Albumin/Globulin Ratio 0.9 (1.0-2.7) L Amylase Level 53 U/L (25-115) Lipase 150 U/L (73-393) Height (Feet): 5 Height (Inches): 9.00 Weight (Pounds): 199 Medications Current Medications Medications (Trade) Dose Ordered Sig/Fadi Route PRN Reason Start Time Stop Time Status Last Admin Dose Admin Acetaminophen (Tylenol) 650 mg Q4H PRN ORAL fever 01/21/20 17:15 02/20/20 17:14 Dextrose (Dextrose 50%) 25 ml Q30M PRN IV Hypoglycemia 01/21/20 17:15 04/20/20 17:14 Dextrose (Dextrose 50%) 50 ml Q30M PRN IV Hypoglycemia 01/21/20 17:15 04/20/20 17:14 Dextrose/Sodium Chloride 1,000 ml @ 75 mls/hr [id number] IV 01/21/20 17:06 02/20/20 17:05 01/22/20 06:10 Diphenhydramine HCl (Benadryl) 25 mg Q6H PRN ORAL Itching/Pruritis 01/21/20 17:15 02/20/20 17:14 Heparin Sodium (Porcine) (Heparin 5000 units/ml) 5,000 units EVERY 12 HOURS SUBQ 01/21/20 21:00 03/06/20 20:59 01/21/20 20:57 Iohexol (OMNIPAQUE-300 100ml) 100 ml NOW PRN INJ Radiology Procedure 01/21/20 12:15 01/23/20 12:12 Metoclopramide HCl (Reglan) 10 mg Q6H PRN IVP severe nausea 01/21/20 17:15 02/20/20 17:14 Ondansetron HCl (Zofran) 4 mg Q6H PRN IVP Nausea & Vomiting 01/21/20 17:15 02/20/20 17:14 Pantoprazole (Protonix) 40 mg DAILY IV 01/22/20 09:00 02/21/20 08:59 Polyethylene Glycol (Miralax) 17 gm HSPRN PRN ORAL Constipation 01/21/20 17:15 02/20/20 17:14 Promethazine HCl (Phenergan) 25 mg Q6H PRN IM Refractory N/V 01/21/20 17:15 01/26/20 17:14 Temazepam (Restoril) 15 mg HSPRN PRN ORAL Insomnia 01/21/20 17:15 01/28/20 17:14 Assessment/Plan Problem List: (1) SBO (small bowel obstruction) ICD Codes: K56.609 - Unspecified intestinal obstruction, unspecified as to partial versus complete obstruction SNOMED: 771555583 (2) History of asthma ICD Codes: Z87.09 - Personal history of other diseases of the respiratory system SNOMED: 754193177 (3) History of hypertension ICD Codes: Z86.79 - Personal history of other diseases of the circulatory system SNOMED: 799357558 Assessment/Plan: NPO IV fluids check electrolytes GI evaluation called surgical consult appreciated. Citlaly Salinas MD Jan 22, 2020 13:42
[2020-01-22 16:00] VITALS: BP 160/68
--- NOTE | 2020-01-22 20:51 | History & Physical ---
History and Physical History & Physicial Tree Pablo MD Jan 22, 2020 20:51
--- NOTE | 2020-01-22 22:45 | History and Physical Report ---
DATE OF ADMISSION: 01/21/2020 CHIEF COMPLAINT: Abdominal pain. HISTORY OF PRESENT ILLNESS: This is a 69-year-old very delightful female with past medical history significant for borderline hypertension, borderline diabetes, asthma, and mild obesity, who has presented to the emergency department complaining of abdominal pain since the morning. She stated that the pain is located in the periumbilical area, crampy in nature. Denies any nausea or vomiting. She had two bowel movements on the day of admission, one of them was before she presented to the emergency department. She denies any fever or chills. Denies any nausea or vomiting. Shortly after initial evaluation in the emergency department, the patient was admitted to the hospital with abdominal pain, possibly due to partial bowel obstruction. PAST MEDICAL HISTORY/PAST SURGICAL HISTORY: As above. History of mild obesity, borderline diabetes, borderline hypertension, asthma, open cholecystectomy, and hysterectomy. MEDICATIONS: Please refer to medication reconciliation. ALLERGIES: Nitroglycerin. SOCIAL HISTORY: Denies any smoking, alcohol, or drugs. FAMILY HISTORY: Noncontributory. REVIEW OF SYSTEMS: Mostly as above. Denies any dysuria, frequency, or hematuria. Complained of abdominal pain. Denies any hemoptysis or hematochezia. Denies any loss of consciousness. Denies any fever or chills. Denies any diarrhea. PHYSICAL EXAMINATION: VITAL SIGNS: On admission, temperature of 97.7, pulse of 71, respirations 19, and blood pressure 138/67. GENERAL: The patient is awake and responsive, in no acute distress. HEAD AND NECK: Pupils are equal and reactive to light. Extraocular movements intact. Neck was supple. No JVD. LUNGS: Good air entry. No wheezing or rales. HEART: Regular. S1 and S2. Distant heart sounds. No murmur or gallops. ABDOMEN: Soft, nondistended, and nontender. Midline surgical scar was noted above the umbilical area. Hypoactive bowel sounds. GENITOURINARY: Refused and deferred. RECTAL: Refused and deferred. PSYCHIATRIC: Mood and affect are intact. EXTREMITIES: No cyanosis, clubbing, or edema. NEUROLOGIC: Cranial nerves II through XII grossly intact. LABORATORY AND DIAGNOSTIC DATA: On admission from the emergency department, WBC of 4.6, hemoglobin of 13, hematocrit of 40, and platelets are 190,000. Sodium 138, potassium 2.7, chloride 99, bicarbonate 29, BUN 18, and creatinine 0.8. Glucose is 158. Calcium is 10.9. Total bilirubin of 0.3. AST of 14 and ALT of 36. Troponin 0.00. Total protein 8.8. Lipase is . PT 10, INR 0.9, and PTT of 27. UA is grossly negative. The patient had a chest x-ray, no acute disease. CT of the abdomen and pelvis done in the emergency, noted the patient has suspicion of small bowel obstruction occurring in the mid jejunum, transition may be in the right lower quadrant. No evidence of pneumoperitoneum. Diverticulosis of the sigmoid colon. Status post cholecystectomy. Arteriovascular disease. Nonobstructive stone in the upper pole of the left kidney. Minimal posterior basal atelectasis. The patient's x-ray of the abdomen, satisfactory nasogastric tube placement. ASSESSMENT: 1. Abdominal pain, possible due to the partial bowel obstruction. 2. Mild obesity. 3. Prediabetic. 4. Prehypertension. 5. Asthma. PLAN: 1. Admit the patient to monitored unit. 2. We will follow up with Dr. Ching consultation from the General Surgery. 3. Code status is Full Code. 4. We kept the patient NPO. 5. Monitor laboratory in the morning. 6. DVT prophylaxis, heparin subcutaneous. Tree Pablo M.D. DR: NICOLE JOB#: [id number] CC:
--- NOTE | 2020-01-24 10:25 | Discharge Summary ---
Discharge Summary Discharge Summary _ DATE OF ADMISSION: 01/21/2020 DATE OF DISCHARGE: 01/22/2020 ADMITTING MD: Dr. Tree Pablo CONSULTANTS: Dr. Citlaly Ching BRIEF HOSPITAL COURSE: Patient is a 69-year-old -[place] female with past medical history significant for borderline hypertension, borderline diabetes, asthma and mild obesity, who presented to the emergency department complaining of abdominal pain since the morning. Pain was located in the periumbilical area, crampy in nature. Denied any nausea or vomiting. She had 2 bowel movements on the day of admission. She denied fever or chills. Denied nausea or vomiting. Upon evaluation at ED, vital signs were stable. Blood work normal. Urinalysis essentially negative. CT of the abdomen and pelvis with contrast showed suspicion for small bowel obstruction in the mid jejunum. Transition in the right lower quadrant. No evidence of pneumoperitoneum. An NG tube was inserted. Patient was then admitted for small bowel obstruction. Patient was placed on n.p.o. She was given IV hydration. Surgeon was consulted. Patient was ordered to have a Gastrografin small bowel series. Abdominal ultrasound showed status post cholecystectomy. NGT fell off. Patient refused Gastrografin. Patient felt better, diet was advanced. She tolerated full liquid diet. Diet was advanced to regular diet. She denied abdominal pain, nausea and vomiting. She had BM x1. She was cleared for discharge home by the surgeon. FINAL DIAGNOSES: Abdominal pain, possible due to partial bowel obstruction Mild obesity Prediabetes Pre-hypertension Asthma DISPOSITION: Patient was discharged home. I have been assigned to complete a discharge summary on this account, I was not involved with the patient's management.--GINETTE Le Jacqueline Robles NP Jan 24, 2020 10:25
== END 2020-01-22 16:48 | disposition left against medical advice (07) | DRG 390 ==
LOC: EMR 13:29 → 3E 14:53 → EDBEDREQ 16:11
DX: K56.600 Partial intestinal obstruction, unspecified as to cause (principal); J45.909 Unspecified asthma, uncomplicated; E66.9 Obesity, unspecified; R73.03 Prediabetes; Z90.49 Acquired absence of other specified parts of digestive tract; Z88.8 Allergy status to other drugs, medicaments and biological substances
CPT/HCPCS: 36415; 71045; 74018; 74177; 76700; 80053; 81003; 82150; 83690; 84484; 85025; 85610; 85730; 86850; 86900; 86901; 93005; 96374; 96375; 99285; J2250; J2405